=== PATIENT | male | born 2000 | race Caucasian/White ===

== ENCOUNTER 2022-08-04 17:40 | Emergency (ER) | payer MEDICAID, SELFPAY ==
[2022-08-04 17:48] VITALS: BP 134/93; PULSE 110; RESP 19; TEMP 37.4; O2SAT 86; BMI 22.4
--- NOTE | 2022-08-04 17:53 | ECG_ITS ---
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 Measurements Intervals [place] Rate: 113 P: 76 WA: 156 QRS: 87 QRSD: 102 T: 43 QT: 338 QTc: 464 Interpretive Statements SINUS TACHYCARDIA ST DEPRESSION, CONSIDER SUBENDOCARDIAL INJURY [0.1+ mV ST DEPRESSION] No previous ECG available for comparison Electronically Signed On 08-04-2022 19:01:01 CDT by Earnest Tan M.D. [id number]
--- NOTE | 2022-08-04 17:54 | XRR_ITS ---
PROCEDURE INFORMATION: Exam: XR Chest Exam date and time: 08/04/2022 6:01 PM Age: 21 years old Clinical indication: Shortness of breath; Patient HX: Asthma; Additional info: SOB TECHNIQUE: Imaging protocol: Radiologic exam of the chest. Views: 1 view. COMPARISON: No relevant prior studies available. FINDINGS: Lungs: Unremarkable. No consolidation. Pleural spaces: Unremarkable. No pleural effusion. No pneumothorax. Heart/Mediastinum: Unremarkable. No cardiomegaly. Bones/joints: Unremarkable. XR/XR chest 1V portable [id number] IMPRESSION: No acute findings.
--- NOTE | 2022-08-04 18:10 | ED_ITS ---
HPI - SOB/Dyspnea General: Chief Complaint: Shortness of Breath/Dyspnea Stated Complaint: Asthma attack Time Seen by Provider: 08/04/22 18:06 History of Present Illness: HPI Narrative: 21-year-old male patient comes in today for complaints of respiratory difficulty that started since last night. Patient has a history of asthma. Patient usually uses wpfl-trd-ddlovon Primatene Mist for breakthrough but no other medications. On exam patient has increased difficulty breathing with tripoding. Patient denies any other medical issues. Patient is able to make short sentences. Associated symptoms: Deny chest pain, fever(s), nausea or vomiting Review of Systems General: Reports: 10 or more systems reviewed and unremarkable except in HPI and below Const: Denies: fever(s) Eyes: Denies: change in vision ENMT: Denies: throat pain Card: Denies: chest pain Resp: Reports: dyspnea and wheezing GI: Denies: nausea or vomiting : Denies: difficulty urinating Musc: Denies: neck pain or back pain Skin/Breast: Denies: rash Physical Exam Const: COMMON NORMALS: alert HENMT: COMMON NORMALS: normocephalic HEAD & SCALP: normocephalic Neck/C-Spine: COMMON NORMALS: full ROM Resp: EFFORT & INSPECTION: Yes abnormal respiratory pattern, Yes uses accessory muscles and Yes tripod positioning AUSCULTATION: wheezes and diminished lung sounds Cardio: COMMON NORMALS: regular rate and regular rhythm RATE: regular rate RHYTHM: regular rhythm GI: COMMON NORMALS: Soft to palpation and non-tender PALPATION: Yes Soft to palpation Back/Pelvis: COMMON NORMALS: thoracic and lumbar spine normal to inspection Extremity: COMMON NORMALS: full ROM Neuro: SENSORIUM/ORIENTATION: Yes alert Psych: COMMON NORMALS: cooperative Course Vital Signs: Vital signs: Vital Signs Temperature 99.3 F 08/04/22 17:48 Pulse Rate 86 08/04/22 19:46 Respiratory Rate 20 H 08/04/22 19:46 Blood Pressure 134/93 08/04/22 17:48 Pulse Oximetry 93 08/04/22 19:46 Oxygen Delivery Me thod Nasal Cannula 08/04/22 19:46 Oxygen Flow Rate 2 08/04/22 19:46 MDM - SOB/Dyspnea Medical Decision Making 21-year-old male patient comes in today with shortness of breath and increasing difficulty breathing. Patient states symptoms started last night he had used some xhob-gzc-csdoiik Primatene Mist with minimal to no relief. Patient then borrowed his sister albuterol inhaler and then came into the ER. On exam patient had decreased air movement throughout lung cade with tight wheezing. Patient was 86% on room air. No edema is noted in the extremities. Vital signs are otherwise normal except for some increase in pulse at 110 bpm. Differential diagnosis asthma exacerbation, respiratory failure, pneumonia, pneumothorax. Chest x-ray was unremarkable. Laboratory values were unremarkable. Patient was treated with 1 L of IV fluid, 2 g of magnesium sulfate, 10 mg of dexamethasone IV push, DuoNeb nebulizer treatment and 1 hour later a albuterol treatment. Over 3 hours patient's oxygenation came up to 93% on room air. Patient had good air movement throughout lung cade with minimal wheezing. Patient felt 100% better. Patient was discharged home with albuterol inhaler, prescription for prednisone and Advair discus. Patient was recommended to use Advair Diskus to help with resolution of asthma exacerbation and controlled. Patient was recommended to follow-up with primary care in 1 week for recheck return to ED for new concerns. Lab Data 08/04/22 18:00 08/04/22 18:00 Labs/Radiology: Radiology Impressions Chest X-Ray 08/04/22 17:54 IMPRESSION: No acute findings. Laboratory Results WBC 11.1 10^3/uL (4.0-10.0) H 08/04/22 18:00 RBC 5.03 10^6/uL (4.1-5.3) 08/04/22 18:00 Hgb 15.4 g/dL (11.7-16.6) 08/04/22 18:00 Hct 44.9 % (42.0-52.0) 08/04/22 18:00 MCV 89.3 fl (80-94) 08/04/22 18:00 MCH 30.6 pg (28.0-34.0) 08/04/22 18:00 MCHC 34.3 g/dL (30.0-36.0) 08/04/22 18:00 RDW 12.7 % (12.1-15.1) 08/04/22 18:00 Plt Count 305 10^3/cmm (130-400) 08/04/22 18:00 MPV 9.1 fL (7.4-10.4) 08/04/22 18:00 Neut % (Auto) 65.2 % 08/04/22 18:00 Lymph % (Auto) 11.1 % 08/04/22 18:00 Gregory % (Auto) 13.1 % 08/04/22 18:00 Eos % (Auto) 9.3 % 08/04/22 18:00 Baso % (Auto) 1.0 % 08/04/22 18:00 Neut # (Auto) 7.27 10^3/uL (1.8-7.7) 08/04/22 18:00 Lymph # (Auto) 1.2 10^3/uL (0.8-4.8) 08/04/22 18:00 Gregory # (Auto) 1.5 10^3/uL (0.2-0.9) H 08/04/22 18:00 Eos # (Auto) 1.0 10^3/uL (0.0-0.8) H 08/04/22 18:00 Baso # (Auto) 0.1 10^3/uL (0.0-0.1) 08/04/22 18:00 Nucleated RBC % (auto) 0 % 08/04/22 18:00 Nucleated RBCs # 0.0 /100WBC 08/04/22 18:00 Sodium 139 mmol/L (136-145) 08/04/22 18:00 Potassium 4.0 mmol/L (3.5-5.1) 08/04/22 18:00 Chloride 99 mmol/L (98-107) 08/04/22 18:00 Carbon Dioxide 26 mmol/L (22-29) 08/04/22 18:00 Anion Gap 18.0 (5-19) 08/04/22 18:00 BUN 5 mg/dL (6-20) L 08/04/22 18:00 Creatinine 0.8 mg/dL (0.7-1.2) 08/04/22 18:00 GFR Calculation 120.9 mL/min (90-130) 08/04/22 18:00 Glucose 99 mg/dL (65-115) 08/04/22 18:00 Calculated Osmolality 285 mOsm/kg (285-295) 08/04/22 18:00 Calcium 9.7 mg/dL (8.5-10.5) 08/04/22 18:00 Total Bilirubin 1.3 mg/dL (0.15-1.2) H 08/04/22 18:00 AST 36 U/L (0-40) 08/04/22 18:00 ALT 31 U/L (0-41) 08/04/22 18:00 Alkaline Phosphatase 77 U/L (40-130) 08/04/22 18:00 NT-Pro-B Natriuret Pep 85 pg/mL (0-125) 08/04/22 18:00 Total Protein 7.7 g/dL (6.6-8.7) 08/04/22 18:00 Albumin 5.2 g/dL (3.5-5.2) 08/04/22 18:00 Globulin 2.5 g/dL (1.3-4.6) 08/04/22 18:00 SARS-CoV-2 Ag (Rapid) negative (Negative) 08/04/22 18:00 Discharge Plan Discharge Patient Disposition: Home Clinical Impression: Asthma with exacerbation Qualifiers: Asthma severity: moderate Asthma persistence: persistent Qualified Code(s): J45.41 - Moderate persistent asthma with (acute) exacerbation Condition: Stable Prescriptions: New prednisone 20 mg tablet 20 mg PO BID 3 Days Qty: 6 0RF fluticasone propion-salmeterol 100-50 mcg/dose blister with device 1 inh inhalation BID Qty: 60 0RF albuterol sulfate 90 mcg/actuation HFA aerosol inhaler 2 inh inhalation Q4H PRN (Reason: shortness of breath or wheezing) Qty: 18 0RF Discharge Orders: Discharge ED (Routine); Ordered 08/04/22 Ordered By: Jose Thompson Discharge Diet: Usual diet Discharge Activity: Increase activity as tolerated Patient Instructions: Asthma Exacerbation - Adult Activity Restrictions/Additional Instructions: Use medication as directed. Use fluticasone?salmeterol 1 elation 2 times a day with good oral care after for continued decrease inflammation and improvement in asthma symptoms. Use albuterol as needed for wheezing or shortness of breath. Take prednisone tablets 1 tablet twice a day for the next 3 days. Follow-up with primary care in 1 week for recheck. Return to ED for worsening symptoms or new concerns. Coding Level of Care Code ED Director Database for Pantera Wilkins
[2022-08-04 18:16] VITALS: PULSE 121; RESP 24; O2SAT 91
[2022-08-04] MEDS: ipratropium-albuterol 3 mL Neb INHALATION (18:18)
[2022-08-04 18:19] VITALS: PULSE 122; RESP 18; O2SAT 93
[2022-08-04 18:25] LABS: Basophils # 0.1 10^3/uL (0.0-0.1); Eosinophils % 9.3 %; Hematocrit 44.9 % (42.0-52.0); Hemoglobin 15.4 g/dL (11.7-16.6); Lymphocytes # 1.2 10^3/uL (0.8-4.8); Lymphocytes % 11.1 %; Mean Corpuscular HGB Conc 34.3 g/dL (30.0-36.0); Mean Corpuscular Hemoglobin 30.6 pg (28.0-34.0); Mean Corpuscular Volume 89.3 fl (80-94); Mean Platelet Volume 9.1 fL (7.4-10.4); Monocytes # 1.5 10^3/uL (0.2-0.9); Monocytes % 13.1 %; Neutrophils # 7.27 10^3/uL (1.8-7.7); Neutrophils % 65.2 %; Nucleated Red Blood Cells % 0 %; Platelet Count 305 10^3/cmm (130-400); Red Blood Count 5.03 10^6/uL (4.1-5.3); Red Cell Distribution Width 12.7 % (12.1-15.1); White Blood Count 11.1 10^3/uL (4.0-10.0)
[2022-08-04] MEDS: magnesium sulfate premix 2 GM/50 ML PIGGYBACK IV (18:28)
[2022-08-04] MEDS: dexamethasone 10 mg/mL INJ IVP (18:28)
[2022-08-04] MEDS: sodium chloride 0.9% 1,000 ML 999 ML IV (18:29)
[2022-08-04 18:35] LABS: SARS Covid-2 Antigen negative (Negative)
[2022-08-04] MEDS: albuterol 8 gm MDI 2 PUFF INHALATION (19:45)
[2022-08-04] MEDS: albuterol 2.5 mg/3 mL Neb INHALATION (19:45)
[2022-08-04 19:46] VITALS: PULSE 86; RESP 20; O2SAT 93
[2022-08-04 20:07] LABS: Alanine Aminotransferase 31 U/L (0-41); Aspartate Amino Transferase 36 U/L (0-40); Blood Urea Nitrogen 5 mg/dL (6-20); Calcium 9.7 mg/dL (8.5-10.5); Chloride 99 mmol/L (98-107); Glomerular Filtration Rate 120.9 mL/min (90-130); Glucose 99 mg/dL (65-115); NT Pro B Type Natriuretic Pept 85 pg/mL (0-125); Osmolality Calculated 285 mOsm/kg (285-295); Sodium 139 mmol/L (136-145); Total Bilirubin 1.3 mg/dL (0.15-1.2); Total Protein 7.7 g/dL (6.6-8.7)
[2022-08-04 20:08] LABS: Albumin Level 5.2 g/dL (3.5-5.2); Alkaline Phosphatase 77 U/L (40-130); Carbon Dioxide 26 mmol/L (22-29); Globulin 2.5 g/dL (1.3-4.6)
== END 2022-08-04 20:36 | disposition home or self-care (01) ==
PROVIDERS: Emergency Medicine; Emergency Provider Nurse Practitioner Family
DX: J45.901 Unspecified asthma with (acute) exacerbation (principal); R00.0 Tachycardia, unspecified
CPT/HCPCS: 71045; 80053; 83880; 85025; 87426; 93005; 94640; 96365; 96375; 99285; J1100; J3475; J3535; J7030; J7613

== ENCOUNTER 2024-11-15 14:30 | Outpatient (CLI) | payer BC, SELFPAY ==
[2024-11-15 15:54] LABS: Hematocrit 41.1 % (37-53); Hemoglobin 14.00 g/dL (11.27-16.99); Mean Corpuscular HGB Conc 34.1 g/dL (30-55); Mean Corpuscular Hemoglobin 32.0 pg (27-33); Mean Corpuscular Volume 93.8 fl (82-101); Nucleated Red Blood Cells % 0 %; Platelet Count 303 10^3/cmm (157-399); Red Blood Count 4.38 10^6/uL (3.85-5.65); White Blood Count 7.19 10^3/uL (3.29-11.43)
[2024-11-15 16:16] LABS: Alanine Aminotransferase 170 U/L (0-41); Albumin Level 4.7 g/dL (3.5-5.2); Alkaline Phosphatase 68 U/L (40-130); Anion Gap 18.2 (5-19); Aspartate Amino Transferase 102 U/L (0-40); Blood Urea Nitrogen 8 mg/dL (6-20); Calcium 9.7 mg/dL (8.5-10.5); Carbon Dioxide 26 mmol/L (22-29); Chloride 100 mmol/L (98-107); Globulin 3.0 g/dL (1.3-4.6); Glucose 89 mg/dL (65-115); Osmolality Calculated 288 mOsm/kg (285-295); Potassium 4.2 mmol/L (3.5-5.1); Sodium 140 mmol/L (136-145); Thyroid Stimulating Hormone 2.11 uIU/mL (0.27-4.20); Total Protein 7.7 g/dL (6.6-8.7)
== END 2024-11-15 14:31 | disposition home or self-care (01) ==
PROVIDERS: PCP Family Medicine; Visit Provider Family Medicine
DX: Z13.6 Encounter for screening for cardiovascular disorders (principal); F10.10 Alcohol abuse, uncomplicated; Z86.69 Personal history of other diseases of the nervous system and sense organs
CPT/HCPCS: 36415; 80053; 80307; 82747; 84443; 85025

== ENCOUNTER → 2025-02-05 15:03 | Outpatient (BNVA) | payer BC, SELFPAY | PROVIDERS: PCP Family Medicine; Visit Provider Family Medicine | DX: Z13.6 Encounter for screening for cardiovascular disorders (principal); F10.10 Alcohol abuse, uncomplicated | CPT/HCPCS: 80053; 84425 ==

== ENCOUNTER 2025-02-06 11:15 | Outpatient (CLI) | payer BC, SELFPAY | END 2025-02-06 11:16 | disposition home or self-care (01) | LOC: LAB 11:15 | PROVIDERS: PCP Family Medicine; Visit Provider Family Medicine | DX: F10.10 Alcohol abuse, uncomplicated (principal) | CPT/HCPCS: 36415; 84425 ==

== ENCOUNTER 2025-02-07 08:50 | Outpatient (CLI) | payer BC, SELFPAY ==
[2025-02-07 09:56] LABS: Hepatitis A Antibody IgM Non-Reactive (Nonreactive); Hepatitis B Surface Antigen Non-Reactive (Nonreactive)
== END 2025-02-07 08:51 | disposition home or self-care (01) ==
PROVIDERS: PCP Family Medicine; Visit Provider Family Medicine
DX: R79.89 Other specified abnormal findings of blood chemistry (principal)
CPT/HCPCS: 80074

== ENCOUNTER 2025-02-08 21:14 | Emergency (ER) | payer BC, SELFPAY ==
[2025-02-08 21:14] VITALS: BP 157/102; PULSE 100; RESP 16; TEMP 36.5; O2SAT 97; BMI 23.7
--- OUTSIDE RECORDS SUMMARY | 2025-02-08 21:24 | XMS_ITS | Continuity of Care Document ---
Author Organization [facility], [facility], [facility] ([facility]) Address [address] [place] [address] Care Team Providers Care Extrusion Technician Name Role Phone CHARLI KENNEDY Primary Care Provider Assessment Encounter Date Assessment Date Assessment LastModified by Organization Details LastModified Time 11/12/2024 11/12/2024 To see PCP 11/13/24 per PAPER [employer]E [employer]KER jhouts Not available 11/12/2024 13:08:44 Plan of Treatment Reminders Order Date Submit Date Provider Last Modified By Organization Details Last Modified Time Details Appointments None record ed. Lab None record ed. Referral None record ed. Procedures None record ed. Surgeries None record ed. Imaging None record ed. Medication Orders None record ed. Patient TargetsNo targets recorded. Patient InstructionsNo instructions recorded. Reason for Referral None Reported. Problems Name Problem SNOMED Code Status Onset Date Resolution Date Notes Provider Name and Address Organization Details Recorded Time Acute severe exacerbation of asthma 192237390 Active 2017 Status Asthmat icus; 018 12:44PM by Sergey wilks, Office Visit; Promote d; acuity set as *; Not Available [facility] 3 03:13:45 Seizure disorder 925294826 Active 2023 Charli Kennedy MD [address] [place] [address], [phone] , [facility] 4 09:48:16 Seizure 31039725 Active 2023 Charli Kennedy MD [address] [place] [address], [phone] , [facility] 4 09:48:53 Mild intermittent asthma 545445092 Active 2023 Charli Kennedy MD [address] [place] [address], [phone] , [facility] 09:53:20 Problem Notes None recorded. Medical Equipment None Reported. Allergies No known drug allergies Medications Name Sig Start Date Stop Date Status Note LastModified by Organization Details LastModified Time levetirac etam 500 mg tablet 03/13 completed Not Available Not Available Not Available albuterol sulfate HFA 90 mcg/actua tion aerosol inhaler INHALE 1 PUFF BY MOUTH EVERY 4 HOURS NEEDED active Not Available Not Available No t Available Qvar BID 03/13 completed Recorded 8 1:18PM by Bulmaro Miller MD, Office Visit; Refill Quantity: 1; Inhalatio n; Not Available Not Available Not Available Vitals Date Recorded Body height Body mass index (BMI) Body weight Oxygen saturation Heart rate Body temperature Systolic And Diastolic Provider Name and Address Organization Details Last Updated DateTime 5 185.42 cm 21.5 kg/m2 71796.9 6 g 99 % 80 /min 98.2 [degF] 140/78 mm[Hg] Sera Ojeda [facility] 5 12:51:46 Social History Question Answer Notes LastModified by Organizat ion Details LastModified Time Tobacco Smoking Status Never Smoker KHARI GARCIA yanira [facility] 03/13/2024 09:35:05 What Is Your Level Of Caffeine Consumption? Moderate Information not available 03/13/2024 What Type Of Diet Are You Following? REGULAR Information not available 03/13/2024 What Was The Date Of Your Most Recent Tobacco Screening? 11/12/2024 Information not available 11/12/2024 What Is Your Relationship Status? Single Information not available 03/13/2024 Sex: Unknown Functional Status Question Answer Note LastModified by Organizat ion Details LastModified Time Do you or have you ever used any other forms of tobacco or nicotine? Yes Information not available 11/12/2024 What is your level of alcohol consumption? Heavy Information not available 03/13/2024 Do you or have you ever used smokeless tobacco? Currently chews tobacco Information not available 11/12/2024 Are you currently employed? Yes Information not available 03/13/2024 Are you able to walk independently without assistance or assistive devices? YESWOREST Information not available 03/13/2024 Are you able to care for yourself independently? Yes Information not available 03/13/2024 Mental Status None recorded. Family History Nothing Reported Notes:CHF: mother Medical History No medical history recorded. Immunizations Vaccine Type Date Status Note Provider Nam e and Address Organization Details Recorded Time Influenza, MDCK, quadrivalent, PF 7 completed Not Available [facility] 10/16/2022 02:39:12 Hep B, unspecified formulation 0 completed Not Available [facility] 11/12/2024 12:43:18 Hep B, unspecified formulation 0 completed [facility] 11/12/2024 12:43:18 D[facility]P 0 completed [facility] 11/12/2024 12:43:18 Hib (PRP-T) 0 completed Not Available [facility] 11/12/2024 12:43:18 IPV 0 completed [facility] 11/12/2024 12:43:18 DTaP 1 completed Not Available [facility] 11/12/2024 12:43:18 Hep B, adolescent/high risk infant 1 completed Not Available [facility] 11/12/2024 12:43:18 Hib (PRP-T) 1 completed Not Available [facility] 11/12/2024 12:43:18 IPV 1 completed Not Available [facility] 11/12/2024 12:43:18 DTaP 1 completed Not Available [facility] 11/12/2024 12:43:18 Hib (PRP-T) 1 completed Not Available [facility] 11/12/2024 12:43:18 DTaP 2 completed Not Available [facility] 11/12/2024 12:43:18 MMR 2 completed Not Available [facility] 11/12/2024 12:43:18 varicella 2 completed Not Available [facility] 11/12/2024 12:43:18 Hib (PRP-T) 2 completed Not Available [facility] 11/12/2024 12:43:18 IPV 2 completed Not Available [facility] 11/12/2024 12:43:18 DTaP 6 completed Not Available [facility] 11/12/2024 12:43:18 IPV 6 completed Not Available [facility] 11/12/2024 12:43:18 MMR 6 completed Not Available [facility] 11/12/2024 12:43:18 Influenza, split virus, trivalent, PF 3 completed Not Available [facility] 11/12/2024 12:43:18 Tdap 4 completed Not Available [facility] 11/12/2024 12:43:18 meningococcal MCV4P 4 completed Not Available [facility] 11/12/2024 12:43:18 HPV, quadrivalent 4 completed Not Available [facility] 11/12/2024 12:43:18 Influenza, split virus, trivalent, preservative 4 completed Not Available [facility] 11/12/2024 12:43:18 Influenza, split virus, trivalent, PF 5 completed Not Available [facility] 11/12/2024 12:43:18 Influenza, split virus, trivalent, PF 6 completed Not Available [facility] 11/12/2024 12:43:18 Hep A, ped/adol, 2 dose 8 completed Not Available [facility] 11/12/2024 12:43:18 HPV9 8 completed Not Available [facility] 11/12/2024 12:43:18 meningococcal B, OMV 8 completed [facility] 11/12/2024 12:43:18 Influenza, split virus, quadrivalent, PF 8 completed Not Available [facility] 11/12/2024 12:43:18 Past Encounters Encounter ID Performer Location Encounter Start Date Encounter Closed Date Diagnosis/Indication Diagnosis SNOMED-CT Code Diagnosis ICD10 Code Diagnosis IMO Codes Diagnosis Note [id number] PIERCE ROWLAND [facility] ([facility]) [address] [place] [address] 11/12/2024 12:41:20 11/12/2024 13:15:02 Health Concerns Section Related Observation LastModified by Organization Detai ls LastModified Time None Recorded Concern Status LastModified by Organization Details LastModified Time None Recorded Payers Encounter Date Sequence Insurance Name Policy Number Policy Paul Covered Member ID Paul Member ID Guarantor Name 11/12/2024 1 [employer] [id number] Nii Beauchamp [id number] Nii Beauchamp Notes Date Note Type Note Provider Name and Address Organization Details Recorded Time 11/12/2024 text/html ROS as noted in the HPI WALK INlast week driving, foggy vision, head tingle-x1 week N/V/D, hullications,- normal after sleep JAQUELIN Wells - [facility], LSylviaLSylviaCSylvia 11/12/2024 13:09:23
--- OUTSIDE RECORDS SUMMARY | 2025-02-08 21:24 | XMS_ITS | Data Portability ---
Author Organization [facility] Yuen Luciano [facility] Tish Hoyos [facility] Address [address] [address] [place] [address] Care Team Providers Care Dental Laboratory Technician Name Role Phone CHARLI KENNEDY Primary Care Provider [phone] Assessment Encounter Date Assessment Date Assessment LastModified by Organization Details LastModified Time 11/12/2024 11/12/2024 To see PCP 11/13/24 per INVENTORY WORKER [email or web address] Not available 11/12/2024 13:08:44 Plan of Treatment Reminders Order Date Submit Date Provider Last Modified By Organization Details Last Modified Time Details Appointments None recorded. Lab None recorded. Referral None recorded. Procedures None recorded. Surgeries None recorded. Imaging electroence phalogram 2023 024 [email or web address] 2 [facility], [address] [place], [address], 5 12:48:47 Medication Orders albuterol sulfate HFA 90 mcg/actuati on aerosol inhaler 2023 024 [id number], [address] [facility] [address], [place], [address], 4 09:53:42 Patient TargetsNo targets recorded. Patient InstructionsNo instructions recorded. Reason for Referral None Reported. Problems Name Problem SNOMED Code Status Onset Date Resolution Date Notes Provider Name and Address Organization Details Recorded Time Acute severe exacerbation of asthma 783025026 Active 2017 Status Asthmat icus; 018 12:44PM by Sergey wilks, Office Visit; Promote d; acuity set as *; Not Available [facility] 3 03:13:45 Seizure disorder 622186513 Active 2023 Charli Kennedy MD [address] [place] [address], [phone] , [facility] 4 09:48:16 Seizure 04768134 Active 2023 Charli Kennedy MD [address] [place] [phone] , [facility] 4 09:48:53 Mild intermittent asthma 404641029 Active 2023 Charli Kennedy MD [address] [place] [address], [phone] , [facility] 4 09:53:20 Problem Notes None recorded. Medical Equipment [...] Updated DateTime 5 185.42 cm 21.5 kg/m2 49091.9 6 g 99 % 80 /min 98.2 [degF] 140/78 mm[Hg] Sera Ojeda [facility] 5 12:51:46 Date Recorded Body weight Body temperature Oxygen saturation Heart rate Systolic And Diastolic Provider Name and Address Organization Details Last Updated DateTime 4 46865.7 g 97.7 [degF] 98 % 86 /min 140/82 mm[Hg] KHARI GARCIA [facility] 4 09:37:18 Social History Question Answer Notes LastModified by Organizat ion Details LastModified Time Tobacco Smoking Status Never Smoker KHARI GARCIA yanira, [facility] 03/13/2024 09:35:05 What Is Your Level [...] MDCK, quadrivalent, PF 7 completed Not Available [facility] 10/16/2022 02:39:12 Hep B, unspecified formulation 0 completed Not Available [facility] 11/12/2024 12:43:18 Hep B, unspecified formulation 0 completed Not Available [facility] 11/12/2024 12:43:18 DTaP 0 completed Not Available [facility] 11/12/2024 12:43:18 Hib (PRP-T) 0 completed Not Available [facility] 11/12/2024 12:43:18 IPV 0 completed Not Available [facility] 11/12/2024 12:43:18 DTaP 1 completed Not Available [facility] 11/12/2024 12:43:18 Hep B, adolescent/high risk infant 1 completed Not Available [facility] 11/12/2024 12:43:18 Hib (PRP-T) 1 completed Not Available [facility] 11/12/2024 12:43:18 IPV 1 completed Not Available [facility] 11/12/2024 12:43:18 DTaP 1 completed Not Available [facility] 11/12/2024 12:43:18 Hib (PRP-T) 1 completed Not Available [facility] 11/12/2024 12:43:18 DTaP 2 completed Not Available [facility] 11/12/2024 12:43:18 MMR 2 completed Not Available [facility] 11/12/2024 12:43:18 varicella 2 completed Not Available [facility] 11/12/2024 12:43:18 Hib (PRP-T) 2 completed Not Available [facility] 11/12/2024 12:43:18 IPV 2 completed Not Available [facility] 11/12/2024 12:43:18 DTaP 6 completed Not Available [facility] 11/12/2024 12:43:18 IPV 6 completed Not Available [facility] 11/12/2024 12:43:18 MMR 6 completed Not Available [facility] 11/12/2024 12:43:18 Influenza, split virus, trivalent, PF 3 completed Not Available [facility] 11/12/2024 12:43:18 Tdap 4 completed Not Available [facility] 11/12/2024 12:43:18 meningococcal MCV4P 4 completed Not Available [facility] 11/12/2024 12:43:18 HPV, quadrivalent 4 completed Not Available [facility] 11/12/2024 12:43:18 Influenza, split virus, trivalent, preservative 4 completed Not Available [facility] 11/12/2024 12:43:18 Influenza, split virus, trivalent, PF 5 completed Not Available [facility] 11/12/2024 12:43:18 Influenza, split virus, trivalent, PF 6 completed Not Available [facility] 11/12/2024 12:43:18 Hep A, ped/adol, 2 dose 8 completed Not Available [facility] 11/12/2024 12:43:18 HPV9 8 completed Not Available [facility] 11/12/2024 12:43:18 meningococcal B, OMV 8 completed Not Available [facility] 11/12/2024 12:43:18 Influenza, split virus, quadrivalent, PF 8 completed Not Available [facility] 11/12/2024 12:43:18 Past Encounters Encounter ID Performer Location Encounter Start Date Encounter Closed Date Diagnosis/Indication Diagnosis SNOMED-CT Code Diagnosis ICD10 Code Diagnosis IMO Codes Diagnosis Note [id number] Charli Kennedy MD [facility] ([facility]) [address] [place] [phone] 03/13/2024 09:25:28 03/13/2024 10:02:55 Seizure 20818717 R56.9 Discussed seizure precaution s including recommenda tions of no driving until seizure-fr ee for 6 months. We will hold starting new medication as he just just had a 1 time seizure that was likely elicited from sleep deprivatio n and energy drinks. Will obtain an EEG and see if he is susceptibl e to further seizures going forward. Mild inter mittent asthma 064523882 J45.20 Refill provided for his inhaler to use as needed. [id number] PIERCE ROWLAND [facility] ([facility]) [address] [place] [phone] 11/12/2024 12:41:20 11/12/2024 13:15:02 Health Concerns Section Related Observation LastModified by Organization Detai ls LastModified Time None Recorded Concern Status LastModified by Organization Details LastModified Time None Recorded Advance Directives Directive None Recorded Payers Insurance Date Sequence Insurance Name Policy Number Policy Paul Covered Member ID Paul Member ID Guarantor Name 11/12/2024 1 [employer] [id number] Nii Beauchamp [id number] Nii Beauchamp Notes Date Note Type Note Provider Name and Address Organization Details Recorded Time 03/13/2024 text/html Annual WellnessReported by PatientSocial/Behavior al HistoryFor fracture risk, patient reportshistory of fractures. For additional lifestyle factors, patient reportstobacco usebut reportsdrinks alcohol (mild-moderate). For diet and nutrition, patient reportshealthy diet. For physical activity, patient reportsgood physical condition. This is a 24-year-old gentleman that comes in today to establish care. The patient states that he had a seizure. Patient states that it was a tonic clonic seizure. 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 Patient has no known history of seizure disorder. Was seen in the emergency department and started on Keppra. The patient states that he took 1 dose of the medication and he states that he did not tolerate it so he has not taking anymore. The patient denies any further seizure activity. Patient reports history of mild intermittent asthma that has been controlled well with as needed albuterol. Patient denies any other medical issues. Charli Kennedy MD [address] [place] [address], [phone], [facility] 03/15/2024 18:22:47 11/12/2024 text/html ROS as noted in the HPI WALK INlast week driving, foggy vision, head tingle-x1 week N/V/D, hullications,- normal after sleep Sera doyle [facility] 11/12/2024 13:09:23
--- NOTE | 2025-02-08 22:53 | ED_ITS ---
HPI - Recheck/Abnormal Lab/Rx General: Chief Complaint: Recheck/Abnormal Lab/Rx Stated Complaint: high bp headache hallucination tingling Time Seen by Provider: 02/08/25 21:56 History of Present Illness: Patient is a 24-year-old male with past medical history of alcohol use with prio r withdrawal seizures who presents with hypertension. Last drink of alcohol was 4 days ago, he reports shakiness, anxiety, tremors, hot flashes, mild headache, and a recent episode of visual hallucinations. He has not had any seizures during this withdrawal episode, though he has a history of alcohol withdrawal seizures approximately one year ago. His parents noted repeat high blood pressures in the 150s multiple times tonight so came to the ED for evaluation. He was recently seen at his PCP for this, where he was started on an SSRI with plans to possibly start naltrexone at his next visit. Denies any fevers, episodes of severe confusion, vomiting. Related Data Previous Rx's ?Medication ?Instructions ?Recorded albuterol sulfate 90 mcg/actuation 2 inh inhalation Q4 H PRN shortness 08/04/22 aerosol inhaler of breath or wheezing #18 gr ams sertraline 25 mg tablet (Zoloft) 25 mg PO DAILY #30 ta bs 02/05/25 chlordiazepoxide HCl 25 mg capsule 25 mg PO DAILY #3 c aps 02/08/25 ondansetron 4 mg disintegrating 4 mg PO TID PRN nausea and 02/08/25 tablet vomiting #14 tabs Allergies Allergy/AdvReac Type Severity Reaction Status Date / Time mold Allergy ALGY-Wheezi Verified 02/05/25 14:23 ng Review of Systems General: Reports: 10 or more systems reviewed and unremarkable except in HPI and below Neuro: Reports: headache(s) Psych: Reports: anxiety PFSH ED PFSH: Family History Mother Congestive heart failure (CHF) Heart disease Congenital heart disease Father No problems noted. Grandfather Heart disease Grandfather Prostate cancer Grandmother No problems noted. Social History Smoking and tobacco/nicotine status: never used tobacco/nicotine Alcohol intake: current Alcohol intake frequency: few times a week Alcohol type: hard liquor Substance/Drug Use: never Physical Exam Narrative: EXAM NARRATIVE: Well-appearing, afebrile, vital stable on arrival, no acute distress. GCS 15, alert and oriented x 4, able to follow commands and answer questions appropriately, no tongue fasciculations or tremulousness seen. Normal mood and affect, not responding to hallucinations. Abdomen soft, nontender, nondistended. Mildly hypertensive, normal heart rate, normal sinus rhythm with no murmurs, no leg swelling, 2+ pulses throughout, good cap refill. Breathing comfortably on room air, saturating well, able to speak in full sentences. Course Vital Signs: Vital signs: Vital Signs Temperature 97.7 F 02/08/25 21:14 Pulse Rate 100 02/08/25 21:14 Respiratory Rate 16 02/08/25 21:14 Blood Pressure 157/102 02/08/25 21:14 Pulse Oximetry 97 02/08/25 21:14 Oxygen Delivery Me thod Room Air 02/08/25 21:14 MDM - Recheck/Abnormal Lab/Rx Medical Decision Making -ddx: Alcohol withdrawal, hypertensive urgency, ELMER, considered but less likely delirium tremens - Patient overall well-appearing, describes symptoms consistent with mild alcohol withdrawal, is on day 4 of cessation, has had mild hypertension, anxiety, 1 visual hallucination and a headache, he has not had any seizures this time though he has had previously, no severe vital sign abnormalities and believe he is out of the window for entering DTs at this time and after shared decision making with him and his parents that we will closely watch him at home we will start him on a dose of Valium here and then give him a 3-day taper of Librium at home to help him through the rest of his mild alcohol withdrawal, Reggie provided as well and advised to follow-up with his PCP in a week's time to revisit his symptoms then, strict return precautions given. No radiology studies performed this visit Discharge Plan Discharge Patient Disposition: Home Clinical Impression: Alcohol withdrawal Condition: Stable Prescriptions: New chlordiazepoxide HCl 25 mg capsule 25 mg PO DAILY Qty: 3 0RF ondansetron 4 mg tablet,disintegrating 4 mg PO TID PRN (Reason: nausea and vomiting) Qty: 14 0RF No Action sertraline [Zoloft] 25 mg tablet 25 mg PO DAILY Qty: 30 0RF albuterol sulfate 90 mcg/actuation HFA aerosol inhaler 2 inh inhalation Q4H PRN (Reason: shortness of breath or wheezing) Qty: 18 0RF Discharge Orders: Discharge ED (Routine); Ordered 02/08/25 Ordered By: Amaury Nieto Referrals: Estelita Titus DO [Primary Care Provider, Family Practice] Patient Instructions: Opioid Safety, Pain Management, Patient Portal & Bhavana Instructions Activity Restrictions/Additional Instructions: You were seen for your high blood pressure, tremors and anxiety, you were evaluated and the most likely cause of your symptoms is a mild alcohol withdrawal. Because you are a day for you are most likely at the peak of the symptoms and to help get you through the rest of it, you will be prescribed benzodiazepine taper, you were given the first dose of Valium in the ED, for the remainder, use the Librium, 25 mg daily starting Tuesday morning for the next 3 days in which case you should feel mostly back to your normal self after this. Use the Zofran, 4 mg every 8 hours as needed for nausea. Alternate ibuprofen 400 mg and Tylenol 650 mg every 4 hours as needed for pain. Follow-up with your primary care provider in a week's time for reevaluation of your symptoms at that time and to further discuss if you should stay on the anxiety medication. Return to the ED with severe worsening of your symptoms, episodes of passing out, fevers, severe confusion, any other emergent concerns. Print Language: Macedonian Coding Level of Care Code ED Hand Kiss Setter for Pantera Wilkins
[2025-02-08 23:10] VITALS: BP 144/87; PULSE 69; O2SAT 97
[2025-02-08 23:17] VITALS: BP 144/87; PULSE 72; O2SAT 98
== END 2025-02-08 23:20 | disposition home or self-care (01) ==
PROVIDERS: Emergency Provider Student in an Organized Health Care Education/Training Program; PCP Family Medicine
DX: F10.239 Alcohol dependence with withdrawal, unspecified (principal)
CPT/HCPCS: 99283; J9999

== ENCOUNTER → 2025-03-04 15:26 | Outpatient (BNVA) | payer BC, SELFPAY | PROVIDERS: PCP Family Medicine; Visit Provider Family Medicine | DX: R79.89 Other specified abnormal findings of blood chemistry (principal) | CPT/HCPCS: 80053 ==